=== PATIENT | female | born 1985 | race Caucasian/White ===

== ENCOUNTER 2025-04-09 14:31 | Emergency (ER) | payer OTHER ==
[~2025-04-09] VITALS: Ht 162.6 cm; Wt 59.0 kg
[2025-04-09 14:45] VITALS: BP 135/44; O2SAT 100
[2025-04-09] MEDS ORDERED: AMIT10TA6 PO (14:57)
[2025-04-09] MEDS ORDERED: ONDA4TAB5 PO (14:57)
[2025-04-09] MEDS ORDERED: SUMA100T PO (14:57)
== END 2025-04-09 15:48 | disposition home or self-care (01) ==
LOC: ER 14:31
DX: R07.9 Chest pain, unspecified (principal); Z53.21 Procedure and treatment not carried out due to patient leaving prior to being seen by health care provider
CPT/HCPCS: A4606; A4663